=== PATIENT | female | born 1935 | race Caucasian/White ===

== ENCOUNTER 2018-05-23 16:18 | Observation (INO) | payer MEDICARE, BC ==
[2018-05-23] MEDS ORDERED: Sodium Chloride 0.9% 5 ML Syringe FLUSH PRN ×2 (16:35→18:35)
--- NOTE | 2018-05-23 16:35 | EDM.PDOC ---
ED HPI GENERAL MEDICAL PROBLEM - General Chief Complaint: General Stated Complaint: HYPERTENSION Time Seen by Provider: 05/23/18 16:30 Source of Information: Reports: Patient History Limitations: Reports: No Limitations - History of Present Illness INITIAL COMMENTS - FREE TEXT/NARRATIVE: 83 YO WF presents to ER with uncontrolled hypertension which began over the last few weeks. Pt reports she has been getting injections in her eye for retinopathy, and after her last shot she developed a headache. Pt was seen by her PCP on 05/16/[address] brain which revealed small intercerebral bleed. Pt had follow up MRI on 05/18/2018 which showed no worsening of bleed. Discussion with neurosurgery in [place] lead to no anticoagulation and better control of hypertension and follow up CT head in 1 month. Pt was started on Norvasc 5mg PO QD in addition to her clonidine 0.2mg BID and losartan and HCTZ. Pt had blood pressure checked today and was concerned due to 240/90's. Pt denies any chest pain, shortness of breath or headache. Pt denies any weakness or parathesias. Pt is alert and oriented x 4 and able to give a reliable history. Duration: Week(s): (3) Location: Reports: Generalized Severity: Mild Improves with: Reports: None Worsens with: Reports: None Associated Symptoms: Reports: Cough. Denies: Confusion, Chest Pain, Diaphoresis , Fever/Chills, Headaches, Nausea/Vomiting, Seizure, Shortness of Breath, Syncope, Weakness - Related Data Allergies Allergy/AdvReac Type Severity Reaction Status Date / Time No Known Allergies Allergy Verified 05/23/18 16:33 Home Meds: Home Meds Hydrocodone/Acetaminophen [Hydrocodon-Acetaminophn 10-325] 0.5 - 1 tab PO TID PRN 05/23/18 [History] Levothyroxine 62.5 mcg PO ACBREAKFAST 05/23/18 [History] Losartan [Cozaar] 100 mg PO DAILY 05/23/18 [History] Lutein/Minerals/Vit A,C & E [Ocuvite] 1 tab PO DAILY 05/23/18 [History] Multivitamin [Rri-Dzhhqg-Tknli] 1 tab PO DAILY 05/23/18 [History] Omeprazole 20 mg PO BIDAC 05/23/18 [History] amLODIPine Besylate [Amlodipine Besylate] 5 mg PO DAILY 05/23/18 [History] atorvaSTATin [Lipitor] 10 mg PO BEDTIME 05/23/18 [History] cloNIDine [Catapres] 0.2 mg PO BID 05/23/18 [History] hydroCHLOROthiazide [Hydrochlorothiazide] 12.5 mg PO DAILY 05/23/18 [History] ED ROS GENERAL - Review of Systems Review Of Systems: See Below Constitutional: Reports: No Symptoms HEENT: Reports: No Symptoms Respiratory: Reports: No Symptoms Cardiovascular: Reports: Blood Pressure Problem, Edema. Denies: Chest Pain, Lightheadedness, Palpitations, Syncope Endocrine: Reports: No Symptoms GI/Abdominal: Reports: No Symptoms : Reports: No Symptoms Musculoskeletal: Reports: No Symptoms Skin: Reports: No Symptoms Neurological: Reports: No Symptoms Psychiatric: Reports: No Symptoms Hematologic/Lymphatic: Reports: No Symptoms Immunologic: Reports: No Symptoms ED EXAM, GENERAL - Physical Exam Exam: See Below Exam Limited By: No Limitations General Appearance: Alert, WD/WN, No Apparent Distress Eye Exam: Bilateral Eye: EOMI, PERRL Head: Atraumatic, Normocephalic Neck: Normal Inspection, Supple, Non-Tender, Full Range of Motion Respiratory/Chest: No Respiratory Distress, Lungs Clear, Normal Breath Sounds, No Accessory Muscle Use, Chest Non-Tender Cardiovascular: Normal Peripheral Pulses, Regular Rate, Rhythm, No Edema, No Gallop, No JVD, No Murmur, No Rub GI/Abdominal: Normal Bowel Sounds, Soft, Non-Tender, No Organomegaly, No Distention, No Abnormal Bruit, No Mass Back Exam: Normal Inspection, Full Range of Motion, NT Extremities: Normal Inspection, Normal Range of Motion, Non-Tender, Normal Capillary Refill, No Pedal Edema Neurological: Alert, Oriented, CN II-XII Intact, Normal Cognition, Normal Gait, Normal Reflexes, No Motor/Sensory Deficits Psychiatric: Normal Affect, Normal Mood Skin Exam: Warm, Dry, Intact, Normal Color, No Rash EKG INTERPRETATION EKG Date: 05/23/18 Time: 16:40 Rhythm: NSR Rate (Beats/Min): 74 [place]: Normal P-Wave: Present QRS: Normal ST-T: Normal QT: Normal Course - Vital Signs Last Recorded V/S: Last Vital Signs Temp 36.4 C 05/23/18 16:24 Pulse 65 05/23/18 17:21 Resp 16 05/23/18 16:24 BP 191/57 H 05/23/18 17:21 Pulse Ox 95 05/23/18 16:24 - Orders/Labs/Meds Orders: Active Orders 24 hr Category Date Time Status EKG Documentation Completion [RC] ASDIRECTED Care 05/23/18 16:34 Active Peripheral IV Care [RC] . DIRECTED Care 05/23/18 16:35 Active Chest 1V Frontal [CR] Stat Exams 05/23/18 16:33 Ordered Head wo Cont [CT] Stat Exams 05/23/18 16:33 Ordered Sodium Chloride 0.9% [Syrex Flush] Med 05/23/18 16:35 Active 5 ml FLUSH Q8HR PRN Peripheral IV Insertion Adult [OM.PC] Routine Oth 05/23/18 16:35 Ordered EKG 12 Lead [EK] Routine Ther 05/23/18 16:33 Ordered Medication Orders Sodium Chloride (Syrex Flush) 5 ml FLUSH Q8HR PRN PRN Reason: Keep Vein Open Labs: Laboratory Tests 05/23/18 05/23/18 05/23/18 Range/Units 16:50 16:50 16:50 WBC 6.71 (5.00-10.00) 10^3/uL RBC 3.77 L (3.80-5.50) 10^6/uL Hgb 12.1 (12.0-16.0) g/dL Hct 35.8 L (37.0-47.0) % MCV 95.0 H (82.0-92.0) fL MCH 32.1 H (27.0-31.0) pg MCHC 33.8 (32.0-36.0) g/dL RDW 13.7 (11.5-14.5) % Plt Count 241 (150-400) 10^3/uL MPV 8.9 (7.4-10.4) fL Immature Gran % (Auto) 0.1 (0.0-5.0) % Neut % (Auto) 56.0 (50.0-70.0) % Lymph % (Auto) 31.0 (20.0-40.0) % [place] % (Auto) 9.5 H (2.0-8.0) % Eos % (Auto) 3.1 H (1.0-3.0) % Baso % (Auto) 0.3 (0.0-1.0) % Immature Gran # (Auto) 0.01 (0.00-0.50) 10^3/uL Neut # (Auto) 3.75 (2.50-7.00) 10^3/uL Lymph # (Auto) 2.08 (1.00-4.00) 10^3/uL [place] # (Auto) 0.64 (0.10-0.80) 10^3/uL Eos # (Auto) 0.21 (0.10-0.30) 10^3/uL Baso # (Auto) 0.02 (0.00-0.10) 10^3/uL PT 9.9 (8.9-11.4) SEC INR 1.0 (0.9-1.1) APTT 25.2 (20.8-31.2) SEC Sodium 134 L (136-145) mmol/L Potassium 3.6 (3.3-5.3) mmol/L Chloride 102 (98-115) mmol/L Carbon Dioxide 26.3 (21.0-32.0) mmol/L Anion Gap 9.3 (5-15) mmol/L BUN 14 (6-25) mg/dL Creatinine 0.91 (0.51-1.17) mg/dL Est Cr Clr Drug Dosing 37.05 mL/min Estimated GFR (MDRD) 59 mL/min Glucose 134 mg/dL Calcium 9.5 (8.7-10.3) mg/dL Total Bilirubin 0.4 (0.2-1.0) mg/dL AST 15 (15-37) U/L ALT 19 (12-78) U/L Alkaline Phosphatase 88 (46-116) IU/L Creatine Kinase 63 (26-276) U/L CK-MB (CK-2) 0.60 (0.00-4.30) ng/mL Troponin I < 0.04 (0.00-0.070) ng/mL B-Natriuretic Peptide 68 (0-100) pg/mL Total Protein 7.7 (6.4-8.2) g/dL Albumin 3.53 (3.00-4.80) g/dL Meds: Medications Generic Name Dose Route Start Last Admin Trade Name Freq PRN Reason Stop Dose Admin Sodium Chloride 5 ml 05/23/18 16:35 Syrex Flush FLUSH Q8HR PRN Keep Vein Open Discontinued Medications Generic Name Dose Route Start Last Admin Trade Name Freq PRN Reason Stop Dose Admin Labetalol HCl 20 mg 05/23/18 16:57 05/23/18 17:10 Normodyne IVPUSH 05/23/18 16:58 20 mg ONETIME ONE Administration Protocol - Radiology Interpretation Free Text/Narrative:: CT HEAD- NAD CXR- NAD Departure - Departure Time of Disposition: 18:44 Disposition: Refer to Observation Condition: Fair Clinical Impression: Uncontrolled hypertension - Discharge Information Referrals: Vic Villalta, RN PRACTITIONER [Primary Care Provider] - Forms: ED Department Discharge - My Orders Last 24 Hours: My Active Orders 05/23/18 16:33 Chest 1V Frontal [CR] Stat Head wo Cont [CT] Stat EKG 12 Lead [EK] Routine 05/23/18 16:34 EKG Documentation Completion [RC] ASDIRECTED 05/23/18 16:35 Peripheral IV Care [RC] . DIRECTED Sodium Chloride 0.9% [Syrex Flush] 5 ml FLUSH Q8HR PRN Peripheral IV Insertion Adult [OM.PC] Routine - Assessment/Plan Last 24 Hours: My Active Orders 05/23/18 16:33 Chest 1V Frontal [CR] Stat Head wo Cont [CT] Stat EKG 12 Lead [EK] Routine 05/23/18 16:34 EKG Documentation Completion [RC] ASDIRECTED 05/23/18 16:35 Peripheral IV Care [RC] . DIRECTED Sodium Chloride 0.9% [Syrex Flush] 5 ml FLUSH Q8HR PRN Peripheral IV Insertion Adult [OM.PC] Routine Assessment:: 1. Uncontrolled hypertension Plan: 1. admit for 23 hour obs- Dr Damon 2. Labatolol 20mg IV for BP 200/100 or greater- hold for pulse less than 60 3. supportive care
[2018-05-23] MEDS ORDERED: Labetalol 100 MG/20 ML MDV IVPUSH ONE ×2 (16:57→18:39)
[2018-05-23 17:30] LABS: ANION GAP 9.3 mmol/L (5-15); CHLORIDE,CL 102 mmol/L (98-115); SODIUM,NA 134 mmol/L (136-145)
[2018-05-23] MEDS ORDERED: Nitroglycerin 2% Oint 1 GM UD Packet TOP ONE (19:54)
[2018-05-23] MEDS ORDERED: Diltiazem 25 MG/5 ML SDV IVPUSH ONE (20:30)
[2018-05-23] MEDS ORDERED: cloNIDine 0.1 MG Tab PO SCH (21:00)
[2018-05-23] MEDS ORDERED: Diltiazem 125 MG in Sodium Chloride 0.9% 100 ML IV SCH (21:00)
[2018-05-23] MEDS: atorvaSTATin 10 MG Tab PO SCH (21:14)
[2018-05-23] MEDS: Acetaminophen/HYDROcodone 325-10 MG Tab PO PRN (21:14)
[2018-05-23] MEDS ORDERED: cloNIDine 0.1 MG/Day Transdermal Patch TRDERM SCH (22:45)
[2018-05-23] MEDS ORDERED: Nitroglycerin 0.4 MG Tab.SL SL PRN (23:05)
[2018-05-23] MEDS ORDERED: Atropine 0.1 MG/ML 10 ML Syringe IVPUSH PRN (23:05)
[2018-05-23] MEDS ORDERED: EPINEPHrine 1:10,000 1 MG/10 ML Syringe IVPUSH PRN (23:05)
[2018-05-23] MEDS ORDERED: Lidocaine 2% 100 MG/5 ML Syringe IVPUSH PRN (23:05)
[2018-05-24] MEDS: Acetaminophen/HYDROcodone 325-10 MG Tab PO PRN ×3 (01:52→22:38)
[2018-05-24 07:56] LABS: ANION GAP 12.2 mmol/L (5-15); CHLORIDE,CL 103 mmol/L (98-115); SODIUM,NA 140 mmol/L (136-145)
[2018-05-24] MEDS ORDERED: amLODIPine 5 MG Tab PO SCH ×2 (09:00→09:45)
[2018-05-24] MEDS ORDERED: Lutein/Minerals/Vitamins A, C & E Tab PO SCH (09:45)
[2018-05-24] MEDS ORDERED: Multivitamins with Minerals/Iron/Folic Acid/Lycopene Tab PO SCH (10:00)
[2018-05-24] MEDS: Losartan 50 MG Tab PO SCH (10:03)
[2018-05-24] MEDS: Hydrochlorothiazide 12.5 MG Cap PO SCH (10:03)
[2018-05-24] MEDS ORDERED: Ondansetron 4 MG/2 ML SDV IVPUSH ONE (11:00)
[2018-05-24] MEDS ORDERED: Labetalol 100 MG/20 ML MDV IVPUSH ONE ×2 (11:00→13:15)
--- NOTE | 2018-05-24 11:01 | PCM.HP ---
H&P History of Present Illness - General Date of Service: 05/24/18 Admit Problem/Dx: Admission Diagnosis/Problem Admission Diagnosis/Problem Uncontrolled hypertension Source of Information: Patient, Old Records, Provider History Limitations: Reports: No Limitations - Related Data Allergies/Adverse Reactions: Allergies Allergy/AdvReac Type Severity Reaction Status Date / Time No Known Allergies Allergy Verified 05/23/18 16:33 Home Medications: Home Meds Hydrocodone/Acetaminophen [Hydrocodon-Acetaminophn 10-325] 0.5 - 1 tab PO TID PRN 05/23/18 [History] Levothyroxine 62.5 mcg PO ACBREAKFAST 05/23/18 [History] Losartan [Cozaar] 100 mg PO DAILY 05/23/18 [History] Lutein/Minerals/Vit A,C & E [Ocuvite] 1 tab PO DAILY 05/23/18 [History] Multivitamin [Gkl-Dqyxwy-Prenb] 1 tab PO DAILY 05/23/18 [History] Omeprazole 20 mg PO BIDAC 05/23/18 [History] amLODIPine Besylate [Amlodipine Besylate] 5 mg PO DAILY 05/23/18 [History] atorvaSTATin [Lipitor] 10 mg PO BEDTIME 05/23/18 [History] cloNIDine [Catapres] 0.2 mg PO BID 05/23/18 [History] hydroCHLOROthiazide [Hydrochlorothiazide] 12.5 mg PO DAILY 05/23/18 [History] Past Medical History HEENT History: Reports: Cataract, Glaucoma, Hard of Hearing, Impaired Vision, Other (See Below) Other HEENT History: retinopathy R eye Cardiovascular History: Reports: High Cholesterol, Hypertension Respiratory History: Reports: Bronchitis, Recurrent Gastrointestinal History: Reports: GERD Genitourinary History: Reports: None [employer]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: Musculoskeletal History: Reports: Arthritis, Back Pain, Chronic Neurological History: Reports: Other (See Below) Other Neuro History: head bleed found on CT/MRI 05/16/18 Endocrine/Metabolic History: Reports: Hypothyroidism, Other (See Below) Other Endocrine/Metabolic History: Borderline diabetic Hematologic History: Reports: Blood Transfusion(s) Oncologic (Cancer) History: Reports: Colon - Infectious Disease History Infectious Disease History: Reports: C-Difficile, Influenza, Measles, Mumps, Shingles - Past Surgical History Head Surgeries/Procedures: Reports: None HEENT Surgical History: Reports: Adenoidectomy, Cataract Surgery, Tonsillectomy Cardiovascular Surgical History: Reports: None Respiratory Surgical History: Reports: None GI Surgical History: Reports: Appendectomy, Cholecystectomy, Colon, Colonoscopy , Other (See Below) Other GI Surgeries/Procedures: 10 inches of colon removed for colon CA Female Surgical History: Reports: Hysterectomy, Salpingo-Oophorectomy Endocrine Surgical History: Reports: None Neurological Surgical History: Reports: None Musculoskeletal Surgical History: Reports: Shoulder Replacement, Other (See Below) Other Musculoskeletal Surgeries/Procedures:: Right shoulder surgery, surgery to bilateral ankles Oncologic Surgical History: Reports: None Dermatological Surgical History: Reports: None Social & Family History - Family History Cardiac: Reports: Other (See Below) Other Cardiac Family History: CAD-mother & father - Tobacco Use Smoking Status *Q: Never Smoker - Caffeine Use Caffeine Use: Reports: Coffee, Soda - Recreational Drug Use Recreational Drug Use: No H&P Review of Systems - Review of Systems: Review Of Systems: See Below General: Denies: Weakness, Fatigue HEENT: Reports: Glasses. Denies: Ear Pain, Headaches, Rhinitis, Sinus Congestion, Sore Throat, Visual Changes Pulmonary: Denies: Shortness of Breath, Cough Cardiovascular: Reports: Edema. Denies: Chest Pain, Palpitations, Lightheadedness Gastrointestinal: Denies: Abdominal Pain, Constipation, Diarrhea, Nausea, Vomiting Genitourinary: Reports: No Symptoms Skin: Reports: No Symptoms Psychiatric: Reports: No Symptoms Neurological: Reports: Dizziness (upon changing positions), Numbness (residual numbness of right upper digits 2-4 and right foot, improving). Denies: Confusion, Headache, Paresthesia, Trouble Speaking, Difficulty Walking, Weakness , Change in Speech Exam - Exam Exam: See Below - Vital Signs Vital Signs: Last Vital Signs Temp 97.4 F 05/24/18 05:39 Pulse 69 05/24/18 05:39 Resp 17 05/24/18 05:39 BP 237/101 H 05/24/18 10:45 Pulse Ox 94 L 05/24/18 03:00 Weight: 156 lb 6.4 oz - Exam Quality Assessment: No: Supplemental Oxygen, DVT Prophylaxis (recent intracranial hemorrhage) General: Alert, Oriented (x3), Cooperative, Other (No distress) HEENT: Conjunctiva Clear, Hearing Intact (with hearing aides), Mucosa Moist & [place], Posterior Pharynx Clear, TMs Clear, Glasses, PERRLA Neck: Supple, Trachea Midline. No: Lymphadenopathy Lungs: Clear to Auscultation, Normal Respiratory Effort Cardiovascular: Regular Rate, Regular Rhythm, Normal S1, Normal S2 GI/Abdominal Exam: Normal Bowel Sounds, Soft, Non-Tender, No Distention Extremities: Other (trace-1+ edema to BLE) Peripheral Pulses: 2+: Carotid (L) (no bruit), Carotid (R) (no bruit) Skin: Warm, Dry, Intact Neurological: Cranial Nerves Intact, Strength Equal Bilateral, Normal Speech, Normal Tone, Sensation Intact Neuro Extensive - Mental Status: Alert, Oriented x3, Normal Mood/Affect, Normal Cognition, Memory Intact Psychiatric: Alert, Normal Affect, Normal Mood - Patient Data Lab Results Last 24 hrs: Laboratory Results - last 24 hr 05/23/18 05/23/18 05/23/18 Range/Units 16:50 16:50 16:50 WBC 6.71 (5.00-10.00) 10^3/uL RBC 3.77 L (3.80-5.50) 10^6/uL Hgb 12.1 (12.0-16.0) g/dL Hct 35.8 L (37.0-47.0) % MCV 95.0 H (82.0-92.0) fL MCH 32.1 H (27.0-31.0) pg MCHC 33.8 (32.0-36.0) g/dL RDW 13.7 (11.5-14.5) % Plt Count 241 (150-400) 10^3/uL MPV 8.9 (7.4-10.4) fL Immature Gran % (Auto) 0.1 (0.0-5.0) % Neut % (Auto) 56.0 (50.0-70.0) % Lymph % (Auto) 31.0 (20.0-40.0) % [place] % (Auto) 9.5 H (2.0-8.0) % Eos % (Auto) 3.1 H (1.0-3.0) % Baso % (Auto) 0.3 (0.0-1.0) % Immature Gran # (Auto) 0.01 (0.00-0.50) 10^3/uL Neut # (Auto) 3.75 (2.50-7.00) 10^3/uL Lymph # (Auto) 2.08 (1.00-4.00) 10^3/uL [place] # (Auto) 0.64 (0.10-0.80) 10^3/uL Eos # (Auto) 0.21 (0.10-0.30) 10^3/uL Baso # (Auto) 0.02 (0.00-0.10) 10^3/uL PT 9.9 (8.9-11.4) SEC INR 1.0 (0.9-1.1) APTT 25.2 (20.8-31.2) SEC Sodium 134 L (136-145) mmol/L Potassium 3.6 (3.3-5.3) mmol/L Chloride 102 (98-115) mmol/L Carbon Dioxide 26.3 (21.0-32.0) mmol/L Anion Gap 9.3 (5-15) mmol/L BUN 14 (6-25) mg/dL Creatinine 0.91 (0.51-1.17) mg/dL Est Cr Clr Drug Dosing 37.05 mL/min Estimated GFR (MDRD) 59 mL/min Glucose 134 mg/dL Calcium 9.5 (8.7-10.3) mg/dL Total Bilirubin 0.4 (0.2-1.0) mg/dL AST 15 (15-37) U/L ALT 19 (12-78) U/L Alkaline Phosphatase 88 (46-116) IU/L Creatine Kinase 63 (26-276) U/L CK-MB (CK-2) 0.60 (0.00-4.30) ng/mL Troponin I < 0.04 (0.00-0.070) ng/mL B-Natriuretic Peptide 68 (0-100) pg/mL Total Protein 7.7 (6.4-8.2) g/dL Albumin 3.53 (3.00-4.80) g/dL 05/24/18 05/24/18 Range/Units 07:17 07:17 WBC 6.21 (5.00-10.00) 10^3/uL RBC 3.74 L (3.80-5.50) 10^6/uL Hgb 12.0 (12.0-16.0) g/dL Hct 35.4 L (37.0-47.0) % MCV 94.7 H (82.0-92.0) fL MCH 32.1 H (27.0-31.0) pg MCHC 33.9 (32.0-36.0) g/dL RDW 13.5 (11.5-14.5) % Plt Count 215 (150-400) 10^3/uL MPV 8.5 (7.4-10.4) fL Immature Gran % (Auto) 0.2 (0.0-5.0) % Neut % (Auto) 53.2 (50.0-70.0) % Lymph % (Auto) 33.5 (20.0-40.0) % [place] % (Auto) 9.5 H (2.0-8.0) % Eos % (Auto) 3.1 H (1.0-3.0) % Baso % (Auto) 0.5 (0.0-1.0) % Immature Gran # (Auto) 0.01 (0.00-0.50) 10^3/uL Neut # (Auto) 3.31 (2.50-7.00) 10^3/uL Lymph # (Auto) 2.08 (1.00-4.00) 10^3/uL [place] # (Auto) 0.59 (0.10-0.80) 10^3/uL Eos # (Auto) 0.19 (0.10-0.30) 10^3/uL Baso # (Auto) 0.03 (0.00-0.10) 10^3/uL PT (8.9-11.4) SEC INR (0.9-1.1) APTT (20.8-31.2) SEC Sodium 140 (136-145) mmol/L Potassium 3.6 (3.3-5.3) mmol/L Chloride 103 (98-115) mmol/L Carbon Dioxide 28.4 (21.0-32.0) mmol/L Anion Gap 12.2 (5-15) mmol/L BUN 11 (6-25) mg/dL Creatinine 0.76 (0.51-1.17) mg/dL Est Cr Clr Drug Dosing 44.36 mL/min Estimated GFR (MDRD) > 60 mL/min Glucose 106 mg/dL Calcium 9.6 (8.7-10.3) mg/dL Total Bilirubin (0.2-1.0) mg/dL AST (15-37) U/L ALT (12-78) U/L Alkaline Phosphatase (46-116) IU/L Creatine Kinase (26-276) U/L CK-MB (CK-2) (0.00-4.30) ng/mL Troponin I < 0.04 (0.00-0.070) ng/mL B-Natriuretic Peptide (0-100) pg/mL Total Protein (6.4-8.2) g/dL Albumin (3.00-4.80) g/dL Result Diagrams: 05/24/18 07:17 05/24/18 07:17 EKG INTERPRETATION EKG Date: 05/23/18 Rhythm: NSR Rate (Beats/Min): 74 [place]: Normal P-Wave: Present QRS: Normal ST-T: Normal QT: Normal Problem List Initiated/Reviewed/Updated: Yes Orders Last 24hrs: Active Orders 24 hr Category Date Time Status Patient Status [ADT] Routine ADT 05/23/18 18:35 Ordered Oxygen Therapy [RC] .PRN Care 05/23/18 18:35 Active Telemetry Monitoring [Cardiac Monitoring] [RC] 0300, Care 05/23/18 19:25 Active 0700,1100,1500,1900,2300 Up ad [place] [RC] ASDIRECTED Care 05/24/18 09:30 Active VTE/DVT Education [RC] PER UNIT ROUTINE Care 05/23/18 18:35 Active Vital Signs [RC] 0300,0700,1100,1500,1900,2300 Care 05/23/18 18:35 Active 2 Gram Sodium Diet [DIET] Diet 05/23/18 Dinner Active Acetaminophen/HYDROcodone [[place]olar 325-10 MG] Med 05/23/18 19:28 Active 0.5 - 1 tab PO TID PRN Atropine [Atropine 0.1 MG/ML] Med 05/23/18 23:05 Active 0 mg IVPUSH ASDIRECTED PRN EPINEPHrine [EPINEPHrine 1:10,000] Med 05/23/18 23:05 Active 1 mg IVPUSH ASDIRECTED PRN FA/Lycopene/Lut/MV,Ca,Iron,Min [Centrum] Med 05/24/18 10:00 Active 1 tab PO DAILY@1800 Labetalol [Normodyne] Med 05/24/18 10:51 Once 20 mg IVPUSH ONETIME ONE Levothyroxine Med 05/24/18 11:30 Active 12.5 mcg PO ACBREAKFAST Levothyroxine [Synthroid] Med 05/24/18 11:30 Active 50 mcg PO ACBREAKFAST Lidocaine 2% [Xylocaine 2%] Med 05/23/18 23:05 Active 0 mg IVPUSH ASDIRECTED PRN Losartan [Cozaar] Med 05/24/18 09:45 Active 100 mg PO DAILY Lutein/Minerals/Vit A,C & E [Ocuvite] Med 05/24/18 09:45 Active 1 each PO DAILY Nitroglycerin [Nitrostat] Med 05/23/18 23:05 Active 0.4 mg SL ASDIRECTED PRN Omeprazole Med 05/24/18 10:00 Active 20 mg PO BIDAC Ondansetron [Zofran] Med 05/24/18 10:52 Once 4 mg IVPUSH ONETIME ONE Sodium Chloride 0.9% [Syrex Flush] Med 05/23/18 18:35 Active 5 ml FLUSH Q8HR PRN amLODIPine [Norvasc] Med 05/24/18 09:45 Active 7.5 mg PO DAILY atorvaSTATin [Lipitor] Med 05/23/18 21:00 Active 10 mg PO BEDTIME cloNIDine [Catapres-TTS 1] Med 05/23/18 22:45 Active 0.2 mg TRDERM Q7D hydroCHLOROthiazide Med 05/24/18 09:00 Active 12.5 mg PO DAILY Saline Lock Insert [OM.PC] Routine Oth 05/23/18 18:35 Ordered Resuscitation Status Routine Resus Stat 05/23/18 18:35 Ordered EKG 12 Lead [EK] Routine Ther 05/23/18 16:33 Stop Req Medication Orders Hydrocodone Bitart/Acetaminophen ([place] 325-10 Mg) 0.5 - 1 tab PO TID PRN PRN Reason: Pain Last Admin: 05/24/18 01:52 Dose: 1 tab Admin: 05/23/18 21:14 Dose: 1 tab Amlodipine Besylate (Norvasc) 7.5 mg PO DAILY [facility] Last Admin: 05/24/18 10:04 Dose: 7.5 mg Atorvastatin Calcium (Lipitor) 10 mg PO BEDTIME [facility] Last Admin: 05/23/18 21:14 Dose: 10 mg Atropine Sulfate (Atropine 0.1 Mg/Ml) 0 mg IVPUSH ASDIRECTED PRN PRN Reason: Heart Clonidine HCl (Catapres-Tts 1) 0.2 mg TRDERM Q7D [facility] Last Admin: 05/23/18 23:13 Dose: 0.2 mg Epinephrine HCl (Epinephrine 1:10,000) 1 mg IVPUSH ASDIRECTED PRN PRN Reason: Heart Hydrochlorothiazide (Hydrochlorothiazide) 12.5 mg PO DAILY [facility] Last Admin: 05/24/18 10:03 Dose: 12.5 mg Labetalol HCl (Normodyne) 20 mg IVPUSH ONETIME ONE; Protocol Stop: 05/24/18 10:52 Levothyroxine Sodium (Synthroid) 50 mcg PO ACBREAKFAST [facility] Levothyroxine Sodium (Levothyroxine) 12.5 mcg PO ACBREAKFAST [facility] Lidocaine HCl (Xylocaine 2%) 0 mg IVPUSH ASDIRECTED PRN PRN Reason: Heart Losartan Potassium (Cozaar) 100 mg PO DAILY [facility] Last Admin: 05/24/18 10:03 Dose: 100 mg Multivitamins/Minerals (Ocuvite) 1 each PO DAILY [facility] Last Admin: 05/24/18 10:03 Dose: 1 each Multivitamins/Minerals (Centrum) 1 tab PO DAILY@1800 [facility] Last Admin: 05/24/18 10:03 Dose: 1 tab Nitroglycerin (Nitrostat) 0.4 mg SL ASDIRECTED PRN PRN Reason: Heart Omeprazole (Omeprazole) 20 mg PO BIDAC [facility] Ondansetron HCl (Zofran) 4 mg IVPUSH ONETIME ONE Stop: 05/24/18 10:53 Sodium Chloride (Syrex Flush) 5 ml FLUSH Q8HR PRN PRN Reason: Keep Vein Open Last Admin: 05/23/18 19:37 Dose: 5 ml Assessment/Plan Comment:: HPI: This is an 83 year old female who presented to the ED with uncontrolled hypertension. This is noted to have developed over the last few weeks. Patient had been receiving injections in her eye for retinopathy. She last had an injection on 05/07/18 and shortly after that she developed a numbness of her right arm and foot. She also notes that she fell into the shrubs at her house that day, but was able to get up on her own. She was seen in the clinic by her PCP on 05/16/18 and underwent a head CT that revealed a small intercerebral bleed. She had a follow-up MRI on 05/18/18 that showed a "small focal presumed interparanchymal hemorrhage of the posterior limb of the left internal capsule" with unchanged size from the CT. Discussion was held with neurosugery who advised no anticoagulation, better BP control, and repeat head CT in 1 month. Patient was recently started on norvasc 5 mg along with her regular clonidine 0.2 mg BID, losartan 100 mg daily, and HCTZ 12.5 mg daily. Pertinent ED workup: Repeat head CT negative for bleed or acute changes Troponin <0.04 BNP 68 Creatinine 0.91 GFR 59 CBC unremarkable EKG NSR 74 bpm CXR negative Labetaolol IV x 2 with mild improvement in BP Medication reconciliation and continuation of medication adjustment needed upon doing admission H&P. Primary Impression/Plan: Uncontrolled hypertension. Overnight patient given labetalol 20 mg IV x 2 and diltiazem 20 mg IV x 1 with minimal improvement. Patient asymptomatic. Increase amlodipine to 10 mg daily. Continue with losartan, HCTZ, clonidine patch. May need addition of hydralazine. Continue with PRN labetalol IV. GFR >60, creatinine 0.76, troponin <0.04. Continue telemetry. Recent intraparenchymal hematoma of brain. Repeat head CT is negative for bleed. Will continue to work on BP control. No aspirin at this time. Parethesias of right extremities, improving. Patient notes improvement in numbness of fingers and foot. Secondary Impression/Plan: Hypothyroidism. Recent TSH of 0.46. Continue levothyroxine. Hyperlipidemia. Recent LDL 71. Continue lipitor. History of asthma. History of type 2 diabetes. Recent A1c 5.9. Metformin has been recently discontinued. Osteoarthritis. Continue Hydrocodone TID. On pain contract agreement. History of colon cancer. GERD. Continue omeprazole 20 mg BID DVT prophylaxis. Patient up and walking. No anticoagulation with recent brain bleed. Overall plan: Monitor blood pressure frequently and make medication adjustments as such. Continue with telemetry at this time. If no improvement may need to consult a specialist.
[2018-05-24] MEDS: Levothyroxine 25 MCG Tab PO SCH (11:47)
[2018-05-24] MEDS: Levothyroxine 50 MCG Tab PO SCH (11:48)
[2018-05-24] MEDS: Omeprazole 20 MG Cap.CR PO SCH ×2 (11:48→17:21)
[2018-05-24] MEDS: Multivitamins with Minerals/Iron/Folic Acid/Lycopene Tab PO SCH (13:08)
[2018-05-24] MEDS ORDERED: hydrALAZINE 50 MG Tab PO ONE (13:15)
[2018-05-24] MEDS ORDERED: amLODIPine 2.5 MG Tab PO ONE (15:00)
[2018-05-24] MEDS: hydrALAZINE 50 MG Tab PO SCH (20:04)
[2018-05-24] MEDS: atorvaSTATin 10 MG Tab PO SCH (20:06)
--- NOTE | 2018-05-24 20:06 | PCM.SN ---
- Free Text/Narrative Note: Patient continues to have elevated blood pressures despite several medication adjustments. Call placed to [facility] and spoke with internal medicine physician. He notes he would continue norvasc 10 mg daily, hydralazine 50 mg TID, clonidine 0.2 mg patch weekly, HCTZ 12.5 mg daily, and losartan 100 mg daily. He would advise adding lopressor 37.5 mg BID. Renal function good. May need to rule out renal artery stenosis as outpatient.
[2018-05-24] MEDS: Metoprolol Tartrate 25 MG Tab PO SCH (21:24)
[2018-05-25] MEDS ORDERED: LEVOTHYROXINE 62.5 MCG PO SCH (07:30)
[2018-05-25] MEDS: Levothyroxine 50 MCG Tab PO SCH (07:42)
[2018-05-25] MEDS: Levothyroxine 25 MCG Tab PO SCH (07:43)
[2018-05-25] MEDS: Losartan 50 MG Tab PO SCH (08:46)
[2018-05-25] MEDS: Hydrochlorothiazide 12.5 MG Cap PO SCH (08:47)
[2018-05-25] MEDS: Omeprazole 20 MG Cap.CR PO SCH (08:47)
[2018-05-25] MEDS: Metoprolol Tartrate 25 MG Tab PO SCH (08:50)
[2018-05-25] MEDS: hydrALAZINE 50 MG Tab PO SCH (08:50)
[2018-05-25] MEDS ORDERED: amLODIPine 5 MG Tab PO SCH (09:00)
[2018-05-25] MEDS ORDERED: hydrALAZINE 50 MG Tab PO ONE (09:49)
--- NOTE | 2018-05-25 11:25 | PCM.DCSUM1 ---
Discharge Summary - Hospital Course Brief History: This is an 83 year old female who presented to the ED with elevated blood pressure. The patient notes her blood pressure has been high the past 2 weeks. She received an injection in her eye on 05/07/18 for retinopathy and shortly after that she developed right arm and foot numbness. She also notes that she fell into her bushes that day, but denies LOC. Patient was found to have a small interparanchymal hemorrhage of the posterior limb of the internal capsule on MRI on 05/16/18. Neurosurgery advised no anticoagulation, better BP control, and repeat head CT in 1 month. Patient had repeat head CT in ER that was negative for acute processes. She was recently started on norvasc in the clinic along with her regular medications. She was admitted for observation for further monitoring of her blood pressure and medication adjustment. Diagnosis: Stroke: No - Discharge Data Discharge Date: 05/25/18 Discharge Disposition: Home, Self-Care 01 Condition: Good - Patient Summary/Data Consults: Consulted with dairy specialist at [facility], Dr. Luis Fam, regarding refractory hypertension on 05/24/18. Labs Pending at D/C: Plasma aldosterone & plasma renin activity Recommended Follow-up Testing/Procedures: Patient to follow-up with Dr. Galeas on 05/29/18 in the clinic. I have ordered a bilateral renal and carotid US along with an ECHO as an outpatient. - Patient Instructions Diet: Low Sodium Activity: As Tolerated Driving: May Drive Today Showering/Bathing: May Shower Notify Provider of: Increased Pain (headache, dizziness, falls, chest pain, heart racing, or shortness of breath), Nausea and/or Vomiting Other/Special Instructions: I will place orders for a kidney and carotid artery ultrasound and you call the clinic on Sunday to schedule for early this week. Continue to monitor your blood pressure and pulse 3 times a day and keep a record to bring with to you follow-up appointment. - Discharge Plan *PRESCRIPTION DRUG MONITORING PROGRAM REVIEWED*: No *COPY OF PRESCRIPTION DRUG MONITORING REPORT IN PATIENT BELLA: No Prescriptions/Med Rec: amLODIPine Besylate [Amlodipine Besylate] 10 mg PO DAILY #60 tablet hydrALAZINE [Apresoline] 50 mg PO TID #120 tab Levothyroxine Sodium [Levoxyl] 50 mcg PO DAILY #60 tablet Metoprolol Tartrate [Lopressor] 37.5 mg PO BID 30 Days #150 tablet Home Medications: Home Meds Hydrocodone/Acetaminophen [Hydrocodon-Acetaminophn 10-325] 0.5 - 1 tab PO TID PRN 05/23/18 [History] Losartan [Cozaar] 100 mg PO DAILY 05/23/18 [History] Lutein/Minerals/Vit A,C & E [Ocuvite] 1 tab PO DAILY 05/23/18 [History] Multivitamin [Oxq-Kkbmxk-Nqdal] 1 tab PO DAILY 05/23/18 [History] Omeprazole 20 mg PO BIDAC 05/23/18 [History] atorvaSTATin [Lipitor] 10 mg PO BEDTIME 05/23/18 [History] hydroCHLOROthiazide [Hydrochlorothiazide] 12.5 mg PO DAILY 05/23/18 [History] Levothyroxine Sodium [Levoxyl] 50 mcg PO DAILY #60 tablet 05/25/18 [Rx] Metoprolol Tartrate [Lopressor] 37.5 mg PO BID 30 Days #150 tablet 05/25/18 [Rx] amLODIPine Besylate [Amlodipine Besylate] 10 mg PO DAILY #60 tablet 05/25/18 [Rx ] cloNIDine [Catapres-TTS 1] 0.2 mg TRDERM Q7D patch 05/25/18 [Rx] hydrALAZINE [Apresoline] 50 mg PO TID #120 tab 05/25/18 [Rx] Referrals: Alicia Galeas MD [Physician] - (Keep appointment for for hospital follow-up.) - Discharge Summary/Plan Comment DC Time >30 min.: No Discharge Summary/Plan Comment: Date of admission: 05/23/18 Date of discharge: 05/25/15 Admitting diagnosis: Primary: Uncontrolled hypertension, Paresthesias of right extremities Secondary: Recent left-sided intraparenchymal hematoma of brain, Hypothyroidism, Hyperlipidemia, History of asthma, History of type 2 diabetes mellitus, Osteoarthritis, History of colon cancer, GERD Final diagnosis: Primary: Refractory hypertension, Paresthesias of right extremities, improving Secondary: Recent left-sided intraparanchymal hematoma of brain, Hypothyroidism, Hyperlipidemia, History of asthma, History of type 2 diabetes mellitus, Osteoarthritis, History of colon cancer, GERD Procedures performed: None Hospital Course: The patient's ED work-up revealed a head CT that was negative for acute processes, BNP 68, troponin <0.04, GFR 59, CBC unremarkable, EKG NSR 74 bpm, and chest x-ray negative. The patient had numerous anti-hypertensive medication adjustments whether oral or IV or transdermal with not much improvement in blood pressure. The blood pressures averaged around 180-230s systolic. Patient remained asymptomatic. She was placed on telemetry and had brief periods of PVCs and tachycardia of 100-110s. Patient received several doses of IV labetalol with little improvement. She was given a one time dose of cardiazem IV with minimal improvement. She is now on 6 anti-hypertensive medications with slight improvement down to 170s. Patient was given an extra 50 mg of po hydralazine the morning of discharge, which brought her BP down to 160/65. However patient had a near syncopal episode with this BP and laid down in the bed. Nursing at bedside and no actual syncopal episode occurred. Patient reported feeling better after resting in bed for awhile. New medications on discharge: -Hydralazine 50 mg po TID, may take an extra 50 mg po BID PRN for systolic BP of 200 or greater -Clonidine 0.2 mg transdermal patch change weekly (placed on 05/23/18) -Lopressor 37.5 mg po BID New changes to home medications on discharge: -Increase norvasc to 10 mg po daily -Stop clonidine pills -Decrease levothyroxine to 50 mcg po daily (Recent TSH low normal at 0.46) Regular home medications on discharge: -Ocuvite 1 tab po daily -Losartan 100 mg po daily -HCTZ 12.5 mg po daily -Hydrocodone 10-325 mg 0.5-1 tablet TID PRN -Lipitor 10 mg po at HS -Omeprazole 20 mg po BIDAC -Multivitamin 1 tab po daily Condition, Treatment, & Final Disposition: The patient was discharged home with her & daughter in stable condition. She was instructed to monitor her blood pressure and pulse at home three times a day and if she has any symptoms. She will bring this list with to the clinic for her follow-up appointment with Dr. Galeas on 05/29/18. The renal & carotid ultrasound and ECHO have been ordered as outpatient and patient will call the clinic on Sunday to schedule them. - General Info Date of Service: 05/25/18 Functional Status: Reports: Pain Controlled, Tolerating Diet, Ambulating, Urinating. Denies: New Symptoms - Review of Systems General: Denies: Fever, Weakness, Fatigue, Malaise, Chills HEENT: Reports: Glasses. Denies: Headaches Pulmonary: Denies: Shortness of Breath, Cough Cardiovascular: Denies: Chest Pain, Palpitations, Dyspnea on Exertion, Lightheadedness Psychiatric: Denies: Anxiety - Patient Data Vitals - Most Recent: Last Vital Signs Temp 98.0 F 05/25/18 07:00 Pulse 79 05/25/18 09:20 Resp 20 05/25/18 07:00 BP 202/95 H 05/25/18 09:59 Pulse Ox 95 05/25/18 09:20 Weight - Most Recent: 156 lb 6.4 oz I&O - Last 24 hours: Intake & Output 05/24/18 05/25/18 05/25/18 22:59 06:59 14:59 Intake Total 325 150 Output Total 800 700 Balance -475 -550 Med Orders - Current: Current Medications Hydrocodone Bitart/Acetaminophen ([place] 325-10 Mg) 0.5 - 1 tab PO TID PRN PRN Reason: Pain Last Admin: 05/24/18 22:38 Dose: 1 tab Amlodipine Besylate (Norvasc) 10 mg PO DAILY [facility] Last Admin: 05/25/18 08:46 Dose: 10 mg Atorvastatin Calcium (Lipitor) 10 mg PO BEDTIME [facility] Last Admin: 05/24/18 20:06 Dose: 10 mg Atropine Sulfate (Atropine 0.1 Mg/Ml) 0 mg IVPUSH ASDIRECTED PRN PRN Reason: Heart Clonidine HCl (Catapres-Tts 1) 0.2 mg TRDERM Q7D [facility] Last Admin: 05/23/18 23:13 Dose: 0.2 mg Epinephrine HCl (Epinephrine 1:10,000) 1 mg IVPUSH ASDIRECTED PRN PRN Reason: Heart Hydralazine HCl (Apresoline) 50 mg PO TID [facility] Last Admin: 05/25/18 08:50 Dose: 50 mg Hydrochlorothiazide (Hydrochlorothiazide) 12.5 mg PO DAILY [facility] Last Admin: 05/25/18 08:47 Dose: 12.5 mg Levothyroxine Sodium (Synthroid) 50 mcg PO ACBREAKFAST [facility] Last Admin: 05/25/18 07:42 Dose: 50 mcg Levothyroxine Sodium (Levothyroxine) 12.5 mcg PO ACBREAKFAST [facility] Last Admin: 05/25/18 07:43 Dose: 12.5 mcg Lidocaine HCl (Xylocaine 2%) 0 mg IVPUSH ASDIRECTED PRN PRN Reason: Heart Losartan Potassium (Cozaar) 100 mg PO DAILY [facility] Last Admin: 05/25/18 08:46 Dose: 100 mg Metoprolol Tartrate (Lopressor) 37.5 mg PO BID [facility] Last Admin: 05/25/18 08:50 Dose: 37.5 mg Multivitamins/Minerals (Centrum) 1 tab PO DAILY@1200 [facility] Last Admin: 05/24/18 13:08 Dose: Not Given Multivitamins/Minerals (Ocuvite) 1 each PO DAILY@1200 [facility] Nitroglycerin (Nitrostat) 0.4 mg SL ASDIRECTED PRN PRN Reason: Heart Omeprazole (Omeprazole) 20 mg PO BIDAC [facility] Last Admin: 05/25/18 08:47 Dose: 20 mg Sodium Chloride (Syrex Flush) 5 ml FLUSH Q8HR PRN PRN Reason: Keep Vein Open Last Admin: 05/23/18 19:37 Dose: 5 ml Discontinued Medications Amlodipine Besylate (Norvasc) 5 mg PO DAILY [facility] Last Admin: 05/24/18 10:45 Dose: Not Given Amlodipine Besylate (Norvasc) 7.5 mg PO DAILY [facility] Last Admin: 05/24/18 10:04 Dose: 7.5 mg Amlodipine Besylate (Norvasc) 2.5 mg PO ONETIME ONE Stop: 05/24/18 15:01 Last Admin: 05/24/18 15:27 Dose: 2.5 mg Clonidine HCl (Catapres) 0.2 mg PO BID [facility] Last Admin: 05/23/18 22:33 Dose: Not Given Diltiazem HCl (Diltiazem) 20 mg IVPUSH ONETIME ONE Stop: 05/23/18 20:31 Last Admin: 05/23/18 20:55 Dose: 20 mg Hydralazine HCl (Apresoline) 50 mg PO ONETIME ONE Stop: 05/24/18 13:16 Last Admin: 05/24/18 13:17 Dose: 50 mg Hydralazine HCl (Apresoline) 50 mg PO ONETIME ONE Stop: 05/25/18 09:50 Last Admin: 05/25/18 09:59 Dose: 50 mg Diltiazem HCl 125 mg/ Sodium (Chloride) 125 mls @ 10 mls/hr IV CONTINUOUS [facility] Labetalol HCl (Normodyne) 20 mg IVPUSH ONETIME ONE; Protocol Stop: 05/23/18 16:58 Last Admin: 05/23/18 17:10 Dose: 20 mg Labetalol HCl (Normodyne) 20 mg IVPUSH ONETIME ONE; Protocol Stop: 05/23/18 18:40 Last Admin: 05/23/18 19:29 Dose: 20 mg Labetalol HCl (Normodyne) 20 mg IVPUSH ONETIME ONE; Protocol Stop: 05/24/18 11:01 Last Admin: 05/24/18 11:04 Dose: 20 mg Labetalol HCl (Normodyne) 20 mg IVPUSH ONETIME ONE; Protocol Stop: 05/24/18 13:16 Last Admin: 05/24/18 13:17 Dose: 20 mg Multivitamins/Minerals (Ocuvite) 1 each PO DAILY [facility] Last Admin: 05/24/18 10:03 Dose: 1 each Multivitamins/Minerals (Centrum) 1 tab PO DAILY@1800 [facility] Last Admin: 05/24/18 10:03 Dose: 1 tab Nitroglycerin (Nitro-Bid 2%) 1 gm TOP STAT ONE Stop: 05/23/18 19:55 Last Admin: 05/23/18 20:04 Dose: 1 gm Ondansetron HCl (Zofran) 4 mg IVPUSH ONETIME ONE Stop: 05/24/18 11:01 Last Admin: 05/24/18 11:03 Dose: 4 mg Sodium Chloride (Syrex Flush) 5 ml FLUSH Q8HR PRN PRN Reason: Keep Vein Open - Exam Quality Assessment: Reports: DVT Prophylaxis (none-recent brain bleed). Denies : Supplemental Oxygen General: Reports: Alert, Oriented (x3), Cooperative, No Acute Distress Lungs: Reports: Clear to Auscultation, Normal Respiratory Effort Cardiovascular: Reports: Regular Rate, Regular Rhythm, No Murmurs Extremities: No Pedal Edema Skin: Reports: Warm, Dry, Intact Neurological: Reports: Normal Speech Psy/Mental Status: Reports: Alert, Normal Affect, Normal Mood
[2018-05-25] MEDS ORDERED: Lutein/Minerals/Vitamins A, C & E Tab PO SCH (12:00)
[2018-05-25] MEDS: Multivitamins with Minerals/Iron/Folic Acid/Lycopene Tab PO SCH (12:16)
== END 2018-05-25 12:35 | disposition home or self-care (01) ==
LOC: KA.ED 16:18 → KA.MS 18:34
PROVIDERS: ADMIT Physician Assistant Medical; ATTEND Family Medicine
DX: I10 Essential (primary) hypertension (principal); R20.2 Paresthesia of skin; I61.8 Other nontraumatic intracerebral hemorrhage; E11.9 Type 2 diabetes mellitus without complications; J45.909 Unspecified asthma, uncomplicated; E11.319 Type 2 diabetes mellitus with unspecified diabetic retinopathy without macular edema; E03.9 Hypothyroidism, unspecified; E78.5 Hyperlipidemia, unspecified; M19.90 Unspecified osteoarthritis, unspecified site; K21.9 Gastro-esophageal reflux disease without esophagitis; Z85.038 Personal history of other malignant neoplasm of large intestine; Z79.899 Other long term (current) drug therapy
CPT/HCPCS: 36415; 70450; 71046; 80048; 80053; 82088; 82550; 82553; 83880; 84244; 84484; 85025; 85610; 85730; 93005; 96366; 96374; 96375; 96376; 99285; A9270; G0378; J2405; J3490

== ENCOUNTER 2019-02-07 17:38 | Emergency (ER) | payer MEDICARE, BC ==
[2019-02-07] MEDS ORDERED: Acetaminophen 325 MG Tab PO ONE (17:48)
[2019-02-07] MEDS ORDERED: Sodium Chloride 0.9% 1,000 ML IV ONE (17:49)
--- NOTE | 2019-02-07 18:29 | EDM.PDOC ---
ED HPI GENERAL MEDICAL PROBLEM - General Chief Complaint: Fever Stated Complaint: FEVER Time Seen by Provider: 02/07/19 18:22 Source of Information: Reports: Patient History Limitations: Reports: No Limitations - History of Present Illness INITIAL COMMENTS - FREE TEXT/NARRATIVE: Patient is an 84-year-old female who presents to the emergency department this evening with a complaint of fever and cough. She did not take her temperature but felt warm. Patient states that symptoms began yesterday, just hasn't felt well, and decided to present to the ER. Patient denies chest pain, nausea, vomiting, diarrhea, abdominal pain, lower extremity edema, family members with similar symptoms, out of country travel, headache, or stiff neck. Onset: Gradual Duration: Day(s): Severity: Mild Improves with: Reports: None Worsens with: Reports: None Associated Symptoms: Reports: Cough, cough w sputum, Fever/Chills, Shortness of Breath. Denies: Diaphoresis, Headaches, Nausea/Vomiting - Related Data Allergies Allergy/AdvReac Type Severity Reaction Status Date / Time No Known Allergies Allergy Verified 02/07/19 18:04 Home Meds: Home Meds Hydrocodone/Acetaminophen [Hydrocodon-Acetaminophn 10-325] 0.5 - 1 tab PO TID PRN 05/23/18 [History] Losartan [Cozaar] 100 mg PO DAILY 05/23/18 [History] Lutein/Minerals/Vit A,C & E [Ocuvite] 1 tab PO DAILY 05/23/18 [History] Multivitamin [Hyf-Susbtf-Wiffh] 1 tab PO DAILY 05/23/18 [History] Omeprazole 20 mg PO BIDAC 05/23/18 [History] atorvaSTATin [Lipitor] 10 mg PO BEDTIME 05/23/18 [History] hydroCHLOROthiazide [Hydrochlorothiazide] 12.5 mg PO DAILY 05/23/18 [History] amLODIPine Besylate [Amlodipine Besylate] 10 mg PO DAILY #60 tablet 05/25/18 [Rx ] cloNIDine [Catapres-TTS 1] 0.2 mg TRDERM Q7D patch 05/25/18 [Rx] Cephalexin [Keflex] 500 mg PO BID #14 capsule 02/07/19 [Rx] Levothyroxine Sodium [Levoxyl] 50 mcg PO BEDTIME 02/07/19 [History] Metoprolol Tartrate [Lopressor] 37.5 mg PO DAILY 02/07/19 [History] hydrALAZINE [Apresoline] 50 mg PO BID 02/07/19 [History] Past Medical History HEENT History: Reports: Cataract, Glaucoma, Hard of Hearing, Impaired Vision, Other (See Below) Other HEENT History: retinopathy R eye Cardiovascular History: Reports: High Cholesterol, Hypertension Respiratory History: Reports: Bronchitis, Recurrent Gastrointestinal History: Reports: GERD Genitourinary History: Reports: None 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: Musculoskeletal History: Reports: Arthritis, Back Pain, Chronic Neurological History: Reports: Other (See Below) Other Neuro History: head bleed found on CT/MRI 05/16/18 Endocrine/Metabolic History: Reports: Hypothyroidism, Other (See Below) Other Endocrine/Metabolic History: Borderline diabetic Hematologic History: Reports: Blood Transfusion(s) Oncologic (Cancer) History: Reports: Colon - Infectious Disease History Infectious Disease History: Reports: C-Difficile, Influenza, Measles, Mumps, Shingles - Past Surgical History Head Surgeries/Procedures: Reports: None HEENT Surgical History: Reports: Adenoidectomy, Cataract Surgery, Tonsillectomy Cardiovascular Surgical History: Reports: None Respiratory Surgical History: Reports: None GI Surgical History: Reports: Appendectomy, Cholecystectomy, Colon, Colonoscopy , Other (See Below) Other GI Surgeries/Procedures: 10 inches of colon removed for colon CA Female Surgical History: Reports: Hysterectomy, Salpingo-Oophorectomy Endocrine Surgical History: Reports: None Neurological Surgical History: Reports: None Musculoskeletal Surgical History: Reports: Shoulder Replacement, Other (See Below) Other Musculoskeletal Surgeries/Procedures:: Right shoulder surgery, surgery to bilateral ankles Oncologic Surgical History: Reports: None Dermatological Surgical History: Reports: None Social & Family History - Family History Family Medical History: Noncontributory Cardiac: Reports: Other (See Below) Other Cardiac Family History: CAD-mother & father - Tobacco Use Smoking Status *Q: Never Smoker Second Hand Smoke Exposure: No - Caffeine Use Caffeine Use: Reports: Coffee, Soda - Recreational Drug Use Recreational Drug Use: No ED ROS GENERAL - Review of Systems Review Of Systems: ROS reveals no pertinent complaints other than HPI. Constitutional: Reports: Fever, Chills, Fatigue HEENT: Reports: No Symptoms Respiratory: Reports: Shortness of Breath, Cough, Sputum. Denies: Hemoptysis Cardiovascular: Reports: No Symptoms. Denies: Chest Pain Endocrine: Reports: No Symptoms GI/Abdominal: Reports: No Symptoms : Reports: No Symptoms Musculoskeletal: Reports: No Symptoms Skin: Reports: No Symptoms Neurological: Reports: No Symptoms Psychiatric: Reports: No Symptoms Hematologic/Lymphatic: Reports: No Symptoms Immunologic: Reports: No Symptoms ED EXAM, GENERAL - Physical Exam Exam: See Below Exam Limited By: No Limitations General Appearance: Alert, WD/WN, No Apparent Distress Eye Exam: Bilateral Eye: Normal Inspection Nose: Normal Inspection, Normal Mucosa, No Blood Throat/Mouth: Normal Inspection, Normal Oropharynx, No Airway Compromise Head: Atraumatic, Normocephalic Neck: Normal Inspection, Supple, Non-Tender, Full Range of Motion. No: Lymphadenopathy (L), Lymphadenopathy (R) Respiratory/Chest: No Respiratory Distress, Rales (Bibasilar) Cardiovascular: Normal Peripheral Pulses, Regular Rate, Rhythm, Systolic Murmur GI/Abdominal: Normal Bowel Sounds, Soft, Non-Tender Back Exam: Normal Inspection. No: CVA Tenderness (L), CVA Tenderness (R) Extremities: Normal Inspection Neurological: Alert, Oriented, Normal Cognition Psychiatric: Normal Affect, Normal Mood Skin Exam: Warm, Dry, Intact, Normal Color, No Rash Lymphatic: No Adenopathy Course - Vital Signs Last Recorded V/S: Last Vital Signs Temp 101.4 F H 02/07/19 18:25 Pulse 91 02/07/19 17:45 Resp 18 02/07/19 17:45 BP 159/55 H 02/07/19 17:45 Pulse Ox 95 02/07/19 17:45 - Orders/Labs/Meds Orders: Active Orders 24 hr Category Date Time Status CULTURE URINE [RM] Stat Lab 02/07/19 19:10 Received Labs: Laboratory Tests 02/07/19 02/07/19 02/07/19 Range/Units 17:50 17:50 19:10 WBC 13.75 H (5.00-10.00) 10^3/uL RBC 3.44 L (3.80-5.50) 10^6/uL Hgb 11.9 L (12.0-16.0) g/dL Hct 34.6 L (37.0-47.0) % MCV 100.6 H D (82.0-92.0) fL MCH 34.6 H (27.0-31.0) pg MCHC 34.4 (32.0-36.0) g/dL RDW 12.7 (11.5-14.5) % Plt Count 216 (150-400) 10^3/uL MPV 8.9 (7.4-10.4) fL Immature Gran % (Auto) 0.2 (0.0-5.0) % Neut % (Auto) 86.0 H (50.0-70.0) % Lymph % (Auto) 6.8 L (20.0-40.0) % [place] % (Auto) 6.7 (2.0-8.0) % Eos % (Auto) 0.2 L (1.0-3.0) % Baso % (Auto) 0.1 (0.0-1.0) % Immature Gran # (Auto) 0.03 (0.00-0.50) 10^3/uL Neut # (Auto) 11.82 H (2.50-7.00) 10^3/uL Lymph # (Auto) 0.93 L (1.00-4.00) 10^3/uL [place] # (Auto) 0.92 H (0.10-0.80) 10^3/uL Eos # (Auto) 0.03 L (0.10-0.30) 10^3/uL Baso # (Auto) 0.02 (0.00-0.10) 10^3/uL Sodium 135 L (136-145) mmol/L Potassium 4.9 (3.3-5.3) mmol/L Chloride 102 (98-115) mmol/L Carbon Dioxide 16.9 L D (21.0-32.0) mmol/L Anion Gap 21.0 H (5-15) mmol/L BUN 23 (6-25) mg/dL Creatinine 1.17 (0.51-1.17) mg/dL Est Cr Clr Drug Dosing 28.96 mL/min Estimated GFR (MDRD) 44 mL/min Glucose 118 H (75 - 99) mg/dL Calcium 9.4 (8.7-10.3) mg/dL Total Bilirubin 0.5 (0.2-1.0) mg/dL AST 12 L (15-37) U/L ALT 13 (12-78) U/L Alkaline Phosphatase 80 (46-116) IU/L Total Protein 7.7 (6.4-8.2) g/dL Albumin 3.57 (3.00-4.80) g/dL Specimen Type Urincc Urine Color Yellow (YELLOW) Urine Appearance Slightly cloudy H (CLEAR) Urine pH 5.0 (5.0-9.0) Ur Specific [place] 1.010 (1.005-1.030) Urine Protein Negative (NEGATIVE) mg/dL Urine Glucose (UA) Negative (NEGATIVE) mg/dL Urine Ketones Negative (NEGATIVE) mg/dL Urine Occult Blood Negative (NEGATIVE) Urine Nitrite Negative (NEGATIVE) Urine Bilirubin Negative (NEGATIVE) Urine Urobilinogen 0.2 (0.2-1.0) E.U./dL Ur Leukocyte Esterase Negative (NEGATIVE) Urine RBC 0-5 (0-5) /HPF Urine WBC 10-20 H (0-5) /HPF Ur Epithelial Cells Few /LPF Urine Bacteria Few (NONE TO FEW) /HPF Meds: Medications Discontinued Medications Generic Name Dose Route Start Last Admin Trade Name Freq PRN Reason Stop Dose Admin Acetaminophen 650 mg 02/07/19 17:48 02/07/19 17:55 Tylenol PO 02/07/19 17:49 650 mg NOW ONE Administration Ceftriaxone Sodium 1 gm 02/07/19 19:46 Rocephin IVPUSH 02/07/19 19:47 ONETIME ONE Sodium Chloride 1,000 mls @ 999 mls/hr 02/07/19 17:49 02/07/19 18:04 Normal Saline IV 02/07/19 18:49 999 mls/hr .BOLUS ONE Administration - Radiology Interpretation Free Text/Narrative:: Chest x-ray shows no acute cardiopulmonary process - Re-Assessments/Exams Free Text/Narrative Re-Assessment/Exam: 02/07/19 19:53 Patient now afebrile, vital signs stable, taking by mouth fluids, feels better, family at bedside. Patient requesting to go home. Patient does have good follow-up with family care. Patient given 1 g Rocephin IV here in the ER, and prescription for Keflex. Patient will follow up with [facility] on Sunday. Departure - Departure Time of Disposition: 19:54 Disposition: Home, Self-Care 01 Condition: Good Clinical Impression: Urinary tract infection Qualifiers: Urinary tract infection type: acute cystitis Hematuria presence: without hematuria Qualified Code(s): N30.00 - Acute cystitis without hematuria Fever Qualifiers: Fever type: unspecified Qualified Code(s): R50.9 - Fever, unspecified - Discharge Information Prescriptions: Cephalexin [Keflex] 500 mg PO BID #14 capsule Instructions: Antibiotic Medicine, Adult, [id number], Urinary Tract Infection , Adult, [id number], Fever, Adult, [id number] Referrals: Vic Villalta [employer] [Primary Care Provider] - Forms: ED Department Discharge Additional Instructions: Follow-up at [facility] on Sunday. Return to emergency sooner if symptoms continue or worsen. - My Orders Last 24 Hours: My Active Orders 02/07/19 19:10 CULTURE URINE [RM] Stat - Assessment/Plan Last 24 Hours: My Active Orders 02/07/19 19:10 CULTURE URINE [RM] Stat Assessment:: Urinary tract infection Plan: Follow-up with PCP in 2-3 days
--- NOTE | 2019-02-07 18:32 | CR ---
[id number] RAD/RAD Chest PA And Lateral EXAM: RAD Chest PA And Lateral CLINICAL DATA: COUGH. FEVER. COMPARISON: CORRELATION IS MADE WITH THE EXAM OF 2017. FINDINGS: The lungs are clear. The cardiomediastinal contour is prominent but stable. The regional bones and soft tissues are unremarkable. IMPRESSION: NO ACUTE PROCESS. Zurdo Calvillo MD 02/07/19 0923 Thank you for allowing us to participate in the care of your patient.
[2019-02-07] MEDS ORDERED: cefTRIAXone 1 GM Vial IVPUSH ONE (19:46)
== END 2019-02-07 20:06 | disposition home or self-care (01) ==
LOC: KA.ED 17:38
DX: N30.00 Acute cystitis without hematuria (principal); M19.90 Unspecified osteoarthritis, unspecified site; I10 Essential (primary) hypertension; E03.9 Hypothyroidism, unspecified; K21.9 Gastro-esophageal reflux disease without esophagitis; Z98.49 Cataract extraction status, unspecified eye; Z98.890 Other specified postprocedural states; Z90.49 Acquired absence of other specified parts of digestive tract; Z90.710 Acquired absence of both cervix and uterus; Z79.899 Other long term (current) drug therapy
CPT/HCPCS: 71046; 80053; 81001; 85025; 87086; 87088; 96361; 96374; 99284-25; A9270-GY; J0696; J7030